=== PATIENT | female | born 2000 | race Caucasian/White ===

== ENCOUNTER 2018-08-26 15:30 | Emergency (ER) | payer OTHER ==
[2018-08-26 18:26] LABS: ABO/RH TYPE 1 1
== END 2018-08-26 18:46 | disposition home or self-care (01) ==
LOC: FTE 18:46
DX: O26.892 Other specified pregnancy related conditions, second trimester (principal); Z3A.21 21 weeks gestation of pregnancy; Z67.91 Unspecified blood type, Rh negative
CPT/HCPCS: 86900; 86901; 99283